=== PATIENT | female | born 1990 | race Caucasian/White ===

== ENCOUNTER 2023-10-03 09:41 | Outpatient (CLI) | payer BC, SELFPAY | END 2023-10-03 09:42 | disposition home or self-care (01) | LOC: NFLDREF 11:10 | PROVIDERS: PCP Family Medicine; Referring Provider Family Medicine; Visit Provider Family Medicine | DX: Z13.6 Encounter for screening for cardiovascular disorders (principal); Z13.1 Encounter for screening for diabetes mellitus | CPT/HCPCS: 80061; 82947 ==

== ENCOUNTER 2023-10-06 08:28 | Outpatient (CLI) | payer BC, SELFPAY | END 2023-10-06 08:29 | disposition home or self-care (01) | PROVIDERS: PCP Family Medicine; Visit Provider Family Medicine | DX: R10.13 Epigastric pain (principal); G89.29 Other chronic pain | CPT/HCPCS: 80053; 86140; 86364 ==

== ENCOUNTER 2023-10-14 08:28 | Outpatient (CLI) | payer BC, SELFPAY ==
[2023-10-14 08:50] LABS: Ur HCG Qualitative* Negative (Negative)
--- NOTE | 2023-10-14 09:44 | W.ANESCHARGE ---
Anesthesia Charges Start Date/Time Anesthesia Start Date: 10/14/23 Anesthesia Start Time: 09:21 Stop Date/Time Anesthesia Stop Date: 10/14/23 Anesthesia Stop Time: 09:42
--- NOTE | 2023-10-14 11:33 | W.ANESCHARGE ---
Anesthesia Charges Start Date/Time Anesthesia Start Date: 10/14/23 Anesthesia Start Time: 09:21 Stop Date/Time Anesthesia Stop Date: 10/14/23 Anesthesia Stop Time: 09:42
== END 2023-10-14 08:29 | disposition home or self-care (01) ==
LOC: OP CLINIC 08:30
PROVIDERS: PCP Family Medicine; Visit Provider Internal Medicine
DX: R10.84 Generalized abdominal pain (principal)
CPT/HCPCS: 00731; 43239; 81025; 88305; J2704

== ENCOUNTER 2023-11-10 12:56 | Outpatient (CLI) | payer BC, SELFPAY ==
--- NOTE | 2023-11-10 13:00 | CRLHL7_ITS ---
For Patients: As a result of the Century Cures Act, medical imaging exams and procedure reports are released immediately into your electronic medical record. You may view this report before your referring provider. If you have questions, please contact your health care provider. INDICATION: Epigastric pain COMPARISON: none TECHNIQUE: Real time espinoza scale imaging and color Doppler analysis was performed of the right upper quadrant. FINDINGS: The patient`s liver is of normal size and has increased echogenicity. There is a normal appearance of the hepatic IVC and proximal abdominal aorta. There is no evidence of ascites. The gallbladder is of normal size and there is no evidence of intraluminal stones or sludge. The gallbladder wall measures 1.9 mm in thickness. The common bile duct is of normal size and measures 6.4 mm in diameter at the level of the myra hepatis. The pancreas appears normal. There is no evidence of a stone or hydronephrosis within the right kidney. The right kidney measures 12.5 cm in length. IMPRESSION: Moderate diffuse hepatic steatosis. Dictated by Yaya Dickerson MD @ 11/10/2023 1:32:43 PM (Electronically Signed)
== END 2023-11-10 12:57 | disposition home or self-care (01) ==
LOC: US 12:58
PROVIDERS: PCP Family Medicine; Visit Provider Family Medicine
DX: R10.13 Epigastric pain (principal); K76.0 Fatty (change of) liver, not elsewhere classified; G89.29 Other chronic pain
CPT/HCPCS: 76705